=== PATIENT | female | born 1965 ===

== ENCOUNTER → 2018-09-07 | Outpatient (CLI) | payer OTHER | END | disposition home or self-care (01) | LOC: SONOGRAMA 08:07 → MAMO-SONO 10:15 | DX: M06.4 Inflammatory polyarthropathy (principal); L40.50 Arthropathic psoriasis, unspecified ==

== ENCOUNTER 2022-10-06 08:12 | Outpatient (CLI) | payer OTHER | END 2022-10-06 08:22 | disposition home or self-care (01) | LOC: SONOGRAMA 08:12 | DX: M05.79 Rheumatoid arthritis with rheumatoid factor of multiple sites without organ or systems involvement (principal) ==

== ENCOUNTER 2022-10-21 08:12 | Outpatient (CLI) | payer OTHER | END 2022-10-21 08:22 | disposition home or self-care (01) | LOC: SONOGRAMA 08:12 | PROVIDERS: ATTEND Internal Medicine Rheumatology | DX: M05.79 Rheumatoid arthritis with rheumatoid factor of multiple sites without organ or systems involvement (principal) ==